=== PATIENT | male | born 1990 | race Hispanic/Latino ===

== ENCOUNTER 2017-09-06 21:37 | Emergency (ER) | payer OTHER ==
[2017-09-06] MEDS ORDERED: ORPHENADRINE CITRATE 30 MG/ML ML ONE (23:25)
== END 2017-09-06 23:58 | disposition home or self-care (01) ==
LOC: EDH 21:37
DX: M54.40 Lumbago with sciatica, unspecified side (principal); Z98.890 Other specified postprocedural states
CPT/HCPCS: 72131; 96372; 99284; J2360